=== PATIENT | male | born 1990 | race Caucasian/White ===

== ENCOUNTER 2019-11-16 09:48 | Emergency (ER) | payer OTHER ==
[~2019-11-16] VITALS: Ht 177.8 cm; Wt 65.8 kg
[2019-11-16 12:00] VITALS: BP 128/90
[2019-11-16] MEDS ORDERED: SENNA-DOCUSATE1 EAC1 PO (12:43)
[2019-11-16] MEDS ORDERED: CLINDAMYCIN HC150 MG PO (12:43)
[2019-11-16] MEDS ORDERED: ZOFRAN ODT4 MG PO (12:43)
[2019-11-16] MEDS ORDERED: NORCO 5-325 TA1 EAC1 PO (12:43)
== END 2019-11-16 12:00 | disposition home or self-care (01) ==
LOC: EDBD 09:48 → ER 09:48
DX: L03.211 Cellulitis of face (principal)